=== PATIENT | male | born 1945 | race Caucasian/White ===

== ENCOUNTER → 2019-11-15 | Outpatient (CLI) | payer OTHER | LOC: LAB 13:49 | PROVIDERS: ATTEND Orthopaedic Surgery Foot and Ankle Surgery | DX: Z01.812 Encounter for preprocedural laboratory examination (principal); Z20.828 Contact with and (suspected) exposure to other viral communicable diseases ==

== ENCOUNTER 2019-11-19 06:09 | Day surgery (SDC) | payer OTHER ==
[~2019-11-19] VITALS: Ht 180.3 cm; Wt 89.8 kg
--- NOTE | ~2019-11-19 | O ---
[facility] [place] [address] OPERATIVE REPORT Name: WINNIE COKER Room #: 150-1 [facility]..#: [id number] Admission: 11/19/19 Attend Phys: Mitul Howard MD Discharge: Date of : 49 Report #: [id number] THIS REPORT FOR: cc: [facility] - Family physician unknown FAM - Family physician unknown Mitul Howard MD ~ CC: ABDIRASHID unknown Mitul Howard DATE OF SERVICE: 11/19/2019 PREOPERATIVE DIAGNOSES: Right hindfoot osteoarthritis and flatfoot deformity. POSTOPERATIVE DIAGNOSES: Right hindfoot osteoarthritis and flatfoot deformity. PROCEDURE: Right foot triple arthrodesis. SURGEON: Mitul Howard MD [employer] DIRECTOR: Irina Carrillo. ANESTHESIA: General. ESTIMATED BLOOD LOSS: Minimal. DRAINS: No drains. TOURNIQUET TIME: 80 minutes. DESCRIPTION OF PROCEDURE: The patient was brought to the operating room where he was placed under general anesthesia. Once under adequate general anesthesia, his right lower extremity was prepped and draped in a sterile manner, and the extremity was elevated, exsanguinated, tourniquet placed 300 mmHg. A lateral incision over the sinus tarsi extending across the calcaneocuboid joint was then made. This was dissected down through the soft tissue and the extensor digitorum brevis to the calcaneocuboid joint as well as the subtalar joint. The subtalar joint was attended to first and any cartilage in the joint was removed utilizing curettes, osteotomes and a bur to get bleeding subchondral bone. Similarly, the calcaneocuboid joint was prepared in a similar fashion. A dorsal incision between the extensor hallucis longus and the anterior tibialis tendon was then made 4 cm in length, dissected down through the soft tissue to the talonavicular joint, which was then exposed as well and any cartilage was removed from here in a similar fashion as the calcaneocuboid joint with curettes, osteotomes and a bur. Once complete, cancellous bone graft as well as Signafuse allograft was utilized in each of the joints and fixation across the subtalar joint was achieved with two 7.3 mm cannulated screws placed under [facility] [address] [place] [address] OPERATIVE REPORT Name: WINNIE COKER Room #: 150-1 [facility].#: [id number] Admission: 11/19/19 Attend Phys: Mitul Howard MD Discharge: Date of : 49 Report #: [id number] fluoroscopic guidance. Excellent fixation was achieved. We then utilized 3 screws across each of the talonavicular and calcaneocuboid joints. These were 4.0 cannulated screws placed under fluoroscopic guidance. Excellent fixation and alignment was achieved. Once complete, the wound was irrigated copiously. Final images noted excellent alignment of the hindfoot with excellent fixation. The wounds were irrigated copiously and closed with 2-0 Vicryl in the deep and subcutaneous tissues and rashaun were used for the skin. The wounds were dressed with Xeroform, 4 x 4s, and a sterile soft compressive dressing and a short leg cast was placed. Tourniquet was let down at 80 minutes. Toes were pink and warm with good capillary refill. There were no complications from the procedure. The patient tolerated the procedure well and went to the recovery room without incident. By: [id number] Mitul Howard MD /nt
[~2019-11-19 06:09] MED LIST: FENOFIBRATE54 MG PO; LOVENOX100 MG/1 M INJECTION; METOPROLOL SUCC50 MG PO; OXYCODON-ACETA1 EAC1 PO; ROSUVASTATIN CA10 MG PO; VITAMIN D325 MC1 PO; WARFARIN SODIUM4 MG PO
[2019-11-19 06:52] LABS: PROTIME 10.7 Seconds (9.3-11.4)
[2019-11-19 08:39] VITALS: BP 133/81
[2019-11-19] MEDS ORDERED: VALIUM5 MG PO (09:04)
[2019-11-19 09:43] VITALS: BP 133/81
== END 2019-11-19 10:15 | disposition home or self-care (01) ==
LOC: TBA 06:09 → OR 06:09 → TBA 06:10 → OR 09:46
PROVIDERS: ATTEND Orthopaedic Surgery Foot and Ankle Surgery
DX: M19.071 Primary osteoarthritis, right ankle and foot (principal); M21.41 Flat foot [pes planus] (acquired), right foot; I10 Essential (primary) hypertension; E78.5 Hyperlipidemia, unspecified; G47.30 Sleep apnea, unspecified; Z98.890 Other specified postprocedural states; Z79.899 Other long term (current) drug therapy; Z96.641 Presence of right artificial hip joint; Z87.891 Personal history of nicotine dependence; Z98.41 Cataract extraction status, right eye; Z98.42 Cataract extraction status, left eye; Z88.8 Allergy status to other drugs, medicaments and biological substances
CPT/HCPCS: 50010; 50101; 50386; 50679; 51412; 52120; 53170; 53341; 53404; 57091; 57180; 57213; 58323; 62110; 62900; 64039; 70005